=== PATIENT | male | born 1965 | race Caucasian/White ===

== ENCOUNTER 2017-11-22 16:30 | Inpatient (IN) | payer OTHER ==
[~2017-11-22] VITALS: Ht 182.9 cm; Wt 119.6 kg
[2017-11-22] MEDS ORDERED: IBUPROFEN400 MG PO (16:53)
[2017-11-22 17:28] LABS: HEMATOCRIT 45.5 % (42.0-54.0); HEMOGLOBIN 15.9 g/dL (13.5-17.5); MCH 31.7 pg (26.0-34.0); MCHC 34.9 g/dL (31.0-37.0); MCV 90.6 fL (80.0-100.0); MEAN PLATELET VOLUME 10.6 fL (7.4-10.4); PLATELET COUNT 175 10x3/uL (130-400); RBC 5.02 10x6/uL (4.20-6.10); RDW 13.7 % (11.5-14.5); WBC 20.4 10x3/uL (4.8-10.8)
[2017-11-22 17:53] LABS: ALBUMIN 3.4 g/dL (3.4-5.0); ALKALINE PHOSPHATASE 63 U/L (46-116); ALT (SGPT) 22 U/L (10-68); BILIRUBIN - TOTAL 1.14 mg/dL (0.2-1.3); CALC OSMOLALITY 266 mosm/kg (275-300); CALCIUM 8.8 mg/dL (8.5-10.1); CARBON DIOXIDE 24.8 mmol/L (21.0-32.0); CHLORIDE - SERUM 101 mmol/L (98-107); GLUCOSE 102 mg/dL (74-106); PROTEIN - SERUM 7.5 g/dL (6.4-8.2); SODIUM 134 mmol/L (136-145); UREA NITROGEN 11 mg/dL (7-18); eGFR NON AFRICAN AMERICAN 84 mL/min (90-120)
[2017-11-22 17:57] LABS: AMYLASE - SERUM 39 U/L (25-115); LIPASE 89 U/L (73-393); TROPONIN-I < 0.017 ng/mL (0.000-0.060)
[2017-11-22 18:22] LABS: APPEARANCE CLEAR (CLEAR); BILIRUBIN NEGATIVE (NEGATIVE); COLOR YELLOW (YELLOW); GLUCOSE NEGATIVE (NEGATIVE); KETONE MODERATE mg/dL (NEGATIVE); NITRITE NEGATIVE (NEGATIVE); PROTEIN TRACE mg/dL (NEGATIVE); SPECIFIC GRAVITY 1.015 (1.005-1.020); UROBILINOGEN NORMAL (NORMAL)
[2017-11-22 18:55] LABS: LYMPHOCYTES 13 % (15-50); MONOCYTES 7 % (2-11); NEUTROPHILS 80 % (40-80); PLATELET ESTIMATE NORMAL
[2017-11-23 04:00] VITALS: BP 114/72
[2017-11-23 04:31] LABS: BASOPHILS 0 % (0-2); EOSINOPHILS 0.3 % (0-7); HEMATOCRIT 42.4 % (42.0-54.0); IMMATURE GRANULOCYTES 0.2 % (0-5); LYMPHOCYTES 5.5 % (15-50); MCHC 35.4 g/dL (31.0-37.0); MCV 90.4 fL (80.0-100.0); MEAN PLATELET VOLUME 10.7 fL (7.4-10.4); MONOCYTES 10.9 % (2-11); NEUTROPHILS 83.1 % (40-80); PLATELET COUNT 158 10x3/uL (130-400); RBC 4.69 10x6/uL (4.20-6.10); RDW 13.8 % (11.5-14.5); WBC 20.1 10x3/uL (4.8-10.8)
[2017-11-23 04:40] LABS: ALBUMIN 2.8 g/dL (3.4-5.0); ALKALINE PHOSPHATASE 55 U/L (46-116); ALT (SGPT) 20 U/L (10-68); BILIRUBIN - TOTAL 0.78 mg/dL (0.2-1.3); CALC OSMOLALITY 268 mosm/kg (275-300); CALCIUM 8.4 mg/dL (8.5-10.1); CARBON DIOXIDE 24.1 mmol/L (21.0-32.0); CHLORIDE - SERUM 100 mmol/L (98-107); GLUCOSE 100 mg/dL (74-106); POTASSIUM - SERUM 3.8 mmol/L (3.5-5.1); PROTEIN - SERUM 6.8 g/dL (6.4-8.2); SODIUM 135 mmol/L (136-145); UREA NITROGEN 9 mg/dL (7-18); eGFR NON AFRICAN AMERICAN 84 mL/min (90-120)
[2017-11-23 08:21] VITALS: BP 127/85
[2017-11-23 09:35] VITALS: BMI 36.3
[2017-11-23 11:15] VITALS: Ht 182.9 cm; Wt 119.6 kg
[2017-11-23 11:23] VITALS: BP 127/78
[2017-11-23 15:39] VITALS: BP 122/82
[2017-11-23 23:42] VITALS: BP 149/93
[2017-11-24 06:34] VITALS: BP 123/75
[2017-11-24 06:52] LABS: CALC OSMOLALITY 271 mosm/kg (275-300); CALCIUM 8.4 mg/dL (8.5-10.1); CARBON DIOXIDE 24.9 mmol/L (21.0-32.0); CHLORIDE - SERUM 101 mmol/L (98-107); GLUCOSE 81 mg/dL (74-106); POTASSIUM - SERUM 3.8 mmol/L (3.5-5.1); SODIUM 137 mmol/L (136-145); UREA NITROGEN 10 mg/dL (7-18); eGFR NON AFRICAN AMERICAN 84 mL/min (90-120)
[2017-11-24 06:55] LABS: BASOPHILS 0.1 % (0-2); EOSINOPHILS 0.9 % (0-7); HEMATOCRIT 42.1 % (42.0-54.0); HEMOGLOBIN 14.5 g/dL (13.5-17.5); IMMATURE GRANULOCYTES 0.3 % (0-5); LYMPHOCYTES 7.3 % (15-50); MCH 31.4 pg (26.0-34.0); MCHC 34.4 g/dL (31.0-37.0); MCV 91.1 fL (80.0-100.0); MEAN PLATELET VOLUME 10.8 fL (7.4-10.4); MONOCYTES 10.7 % (2-11); NEUTROPHILS 80.7 % (40-80); PLATELET COUNT 172 10x3/uL (130-400); RBC 4.62 10x6/uL (4.20-6.10); RDW 13.9 % (11.5-14.5); WBC 15.8 10x3/uL (4.8-10.8)
[2017-11-24 09:04] VITALS: BP 131/76
[2017-11-24 11:26] VITALS: BP 126/71
[2017-11-24 15:47] VITALS: BP 130/72
[2017-11-24 22:05] VITALS: BP 147/86
[2017-11-25 05:41] LABS: BASOPHILS 0.2 % (0-2); EOSINOPHILS 1.8 % (0-7); HEMATOCRIT 41.5 % (42.0-54.0); HEMOGLOBIN 14.5 g/dL (13.5-17.5); IMMATURE GRANULOCYTES 0.4 % (0-5); LYMPHOCYTES 14.1 % (15-50); MCH 31.8 pg (26.0-34.0); MCHC 34.9 g/dL (31.0-37.0); MEAN PLATELET VOLUME 10.9 fL (7.4-10.4); NEUTROPHILS 74.5 % (40-80); PLATELET COUNT 194 10x3/uL (130-400); RBC 4.56 10x6/uL (4.20-6.10); RDW 13.4 % (11.5-14.5); WBC 12.2 10x3/uL (4.8-10.8)
[2017-11-25 06:03] LABS: CALC OSMOLALITY 269 mosm/kg (275-300); CALCIUM 8.8 mg/dL (8.5-10.1); CARBON DIOXIDE 22.4 mmol/L (21.0-32.0); CHLORIDE - SERUM 101 mmol/L (98-107); CREATININE - SERUM 0.9 mg/dL (0.6-1.3); GLUCOSE 78 mg/dL (74-106); POTASSIUM - SERUM 3.8 mmol/L (3.5-5.1); SODIUM 136 mmol/L (136-145); UREA NITROGEN 10 mg/dL (7-18); eGFR NON AFRICAN AMERICAN > 90 mL/min (90-120)
[2017-11-25 06:16] VITALS: BP 133/79
[2017-11-25 08:39] VITALS: BP 127/75
[2017-11-25 10:47] VITALS: BP 145/86
[2017-11-25 15:37] VITALS: BP 123/82
[2017-11-25 21:18] VITALS: BP 124/84
[2017-11-26 05:42] VITALS: BP 154/94
[2017-11-26 06:51] LABS: BASOPHILS 0.3 % (0-2); CALC OSMOLALITY 270 mosm/kg (275-300); CALCIUM 8.5 mg/dL (8.5-10.1); CARBON DIOXIDE 29.7 mmol/L (21.0-32.0); CHLORIDE - SERUM 101 mmol/L (98-107); EOSINOPHILS 2.4 % (0-7); GLUCOSE 100 mg/dL (74-106); HEMATOCRIT 43.1 % (42.0-54.0); HEMOGLOBIN 14.9 g/dL (13.5-17.5); IMMATURE GRANULOCYTES 0.5 % (0-5); LYMPHOCYTES 16.3 % (15-50); MCH 31.4 pg (26.0-34.0); MCHC 34.6 g/dL (31.0-37.0); MCV 90.7 fL (80.0-100.0); MEAN PLATELET VOLUME 10.5 fL (7.4-10.4); MONOCYTES 12.2 % (2-11); NEUTROPHILS 68.3 % (40-80); PLATELET COUNT 226 10x3/uL (130-400); POTASSIUM - SERUM 3.9 mmol/L (3.5-5.1); RBC 4.75 10x6/uL (4.20-6.10); RDW 13.5 % (11.5-14.5); SODIUM 136 mmol/L (136-145); UREA NITROGEN 10 mg/dL (7-18); WBC 11.9 10x3/uL (4.8-10.8); eGFR NON AFRICAN AMERICAN 84 mL/min (90-120)
[2017-11-26 07:04] LABS: APPEARANCE CLEAR (CLEAR); BILIRUBIN NEGATIVE (NEGATIVE); COLOR YELLOW (YELLOW); GLUCOSE NEGATIVE (NEGATIVE); KETONE LARGE mg/dL (NEGATIVE); NITRITE NEGATIVE (NEGATIVE); PROTEIN NEGATIVE (NEGATIVE); SPECIFIC GRAVITY 1.015 (1.005-1.020); UROBILINOGEN NORMAL (NORMAL)
[2017-11-26 08:19] VITALS: BP 139/91
[2017-11-26] MEDS ORDERED: LEVAQUIN750 MG PO (11:07)
[2017-11-26] MEDS ORDERED: FLAGYL500 MG PO (11:08)
== END 2017-11-26 13:45 | disposition home or self-care (01) | DRG 392 ==
LOC: D.ER 16:30 → D.M2 21:10 → D.SDCHOLD 11-23 09:07 → D.M2 11-26 13:45
PROVIDERS: Emergency Medicine; Family Medicine; Internal Medicine Nephrology
DX: K57.80 Diverticulitis of intestine, part unspecified, with perforation and abscess without bleeding (principal); F17.213 Nicotine dependence, cigarettes, with withdrawal; Z86.73 Personal history of transient ischemic attack (TIA), and cerebral infarction without residual deficits

== ENCOUNTER 2017-12-07 10:41 | Inpatient (IN) | payer OTHER ==
[~2017-12-07] VITALS: Ht 182.9 cm; Wt 117.9 kg
--- NOTE | ~2017-12-07 | MORECARE ---
CASE MANAGEMENT DISCHARGE SUMMARY PATIENT: EDGARD CARR UNIT: [id number] ADM DATE: 12/07/17 AGE: 52 : [birth year] SEX: M ROOM/BED: D.2202 AUTHOR: CHAVA,DOC PHYSICIAN: REFERRING PHYSICIAN: AGATA FITZPATRICK MD DATE OF SERVICE: 12/20/17 Discharge Plan Patient Name: EDGARD CARR Facility: [facility]:[place] : 1965 Planned Disposition: Home Anticipated Discharge Date: 12/12/17 Discharge Date: 12/18/2017 Expected LOS: 5 Initial Reviewer: [email or web address] Initial Review Date: 12/07/2017 Generated: 12/20/17 9:07 am DCP- Discharge Planning Updated by [email or web address]: Lory Donald on 12/07/17 2:[address] Patient Name: EDGARD CARR Admission Status: ER Accout number: [id number] Admission Date: 12-07-2017 : 1965 Admission Diagnosis: Attending: AGATA FITZPATRICK Current LOS: 1 Anticipated DC Date: 12-12-2017 Planned Disposition: Home Primary Insurance: [email or web address] PPO Discharge Planning Comments: CM met with patient and his to complete initial dc planning assessment. CM educated patient on the CM role and verbal consent given by patient to complete assessment. Patient lives at home independently with his and children. At discharge patient plans to return home and feels this is a safe discharge. Patient denied known discharge needs at this time. CM will continue to follow and will assist as needed with dc plans/needs. See below for more assessment information. Is the patient Alert and Oriented? Yes * How many steps to enter\exit or inside your home? None * PCP Don't have one. Was to see Dr. Fitzpatrick until he found a primary. * Pharmacy [facility] * Preadmission Environment Home with Family * ADLs Independent * Equipment None * List name and contact numbers for known caregivers / representatives who currently or will assist patient after discharge: Bandar Carr - - [phone] * Verbal permission to speak to the caregivers and representatives has been obtained from the patient. Yes * Community resources currently utilized None * Additional services required to return to the preadmission environment? No * Can the patient safely return to the preadmission environment? Yes * Has this patient been hospitalized within the prior 30 days at any hospital? Yes Warehouse Inventory Clerk: Lory Donald DCPIA - Discharge Planning Initial Assessment Updated by [email or web address]: Lory Donald on 12/07/17 3:35 pm * Is the patient Alert and Oriented? Yes * How many steps to enter\exit or inside your home? None * PCP Don't have one. Was to see Dr. Fitzpatrick until he found a primary. * Pharmacy [facility] * Preadmission Environment Home with Family * ADLs Independent * Equipment None * List name and contact numbers for known caregivers / representatives who currently or will assist patient after discharge: Bandar Carr - - [phone] * Verbal permission to speak to the caregivers and representatives has been obtained from the patient. Yes * Community resources currently utilized None * Additional services required to return to the preadmission environment? No * Can the patient safely return to the preadmission environment? Yes * Has this patient been hospitalized within the prior 30 days at any hospital? Yes Last DP export: 12/07/17 2:42 p Patient Name: EDGARD CARR Page [id number] at 0807 All edits/amendments must be made on the electronic document DICTATION DATE: 12/20/17806 SR. SOCIAL MEDIA & MOBILE MANAGER: NORMA 12/20/17806 RPT#: [id number] DC DATE:12/18/17 STATUS: DIS IN [facility] [address] [place] [address] END OF REPORT
--- NOTE | ~2017-12-07 | OP ---
PATIENT NAME: EDGARD MARROQUIN MEDICAL RECORD: [id number] :[birth year] LOCATION:[facility] [place] ADMISSION DATE:12/07/17 SURGEON: JACKY ADAMS MD DATE OF OPERATION: 12/10/2017 PREOPERATIVE DIAGNOSIS: Recurrent diverticulitis. POSTOPERATIVE DIAGNOSES: Recurrent diverticulitis with abscess. PROCEDURE: Hand-assisted laparoscopic surgery - sigmoid colectomy with takedown of the splenic flexure. SURGEON: Jacky Adams MD CLOTH WINDING SUPERVISOR: None. BLOOD LOSS: 100 cc. ANESTHESIA: General. COMPLICATIONS: None. The risks, possible complications and alternatives to procedure were explained to the patient. He elects to proceed. The discussion specifically included, but was not limited to, bleeding requiring emergency reoperation, infection, intestinal injury as well as an open procedure and a colostomy or ileostomy. OPERATIVE COURSE: The patient was conveyed to the operating room electively on 12/10/2017. General anesthesia was induced by the anesthesia staff. The patient was placed supine, but in adjustable stirrups, so that the lower extremities could be elevated. The abdomen was sterilely prepped and draped. A small skin alicia was accomplished in the left upper quadrant. A Veress needle was inserted through this skin alicia and into the peritoneal cavity. CO2 insufflation was begun. Once a sufficient pneumoperitoneum had been achieved, a 5-mm trocar was inserted through an incision in the umbilicus. Under direct internal vision utilizing a television camera, a 5-mm trocar was inserted through an incision in the epigastrium and another 5-mm trocar was inserted through an incision in the suprapubic area. During insertion of the Veress needle and all trocars, there appeared to have been no injury to the bowels, any intraperitoneal or retroperitoneal structures. I tilted the patient to the right. I incised along the right white line of Toldt utilizing the laparoscopic Harmonic scalpel. I took down the splenic flexure utilizing the laparoscopic Harmonic scalpel. I then created a transverse incision 2 fingerbreadths above the pubic symphysis. Sharp dissection was carried down through the skin and subcutaneous tissue as well as Adonis's fascia. The anterior fascia was incised transversely. I then stretched the rectus abdominis muscles laterally. Stay sutures were placed on the peritoneum on either side. I then incised the peritoneum. I placed an Jordan retractor in the peritoneum. I placed a GelPort on top of the Jordan retractor. I then inserted my lubricated left upper extremity into the abdomen. Another skin incision was accomplished in the left lower quadrant and a 5-mm trocar was inserted there. OPERATIVE REPORT [id number] EDGARD MARROQUIN Utilizing a hand-assisted approach, I continued some blunt dissection at the splenic flexure, fully mobilizing the splenic flexure of the colon. I incised along the entire length of the white line of Toldt on the left. I folded the left colon medially. I entered the inter-sigmoid fossa. There was no damage to ureter. No vascular injury either. I then took the top of the Gelport. I then created a window in the mesorectum at the point where the sigmoid colon splays out to become the rectum. I stapled across the top of the rectum with an Endo-SKY type stapler utilizing a blue load. I then began to takedown the mesentery of the sigmoid colon. I encountered acute diverticulitis with purulence. So there was a small abscess present. I continued to take down the mesentery of the sigmoid colon with the Harmonic scalpel. I chose the proximal extent of my resection to be the junction of the descending and sigmoid colons. I stapled across the colon here with a SKY-75 stapler. The remaining mesentery of the sigmoid colon was taken down with the Harmonic scalpel. The specimen was sent to pathology. I then dilated up through the anus with EEA sizers. I then rescrubbed and returned to the sterile field. I excised the staple line at the descending colon. I placed a 29-mm anvil through the colotomy and brought it out through the antimesenteric border of the colon. I then stapled off the end of the descending colon with the SKY-75 stapler. I then inserted the EEA stapling device up through the anus and brought it out through the upper portion of the rectum. It was connected to the anvil. There was no twisting of the bowel. I then tightened down on the EEA stapling device and then fired. We then loosened up on the EEA device and removed in its entirety. There were 2 complete donuts of large bowel present within the EEA stapling device. We then filled the pelvis with normal saline. Utilizing proctoscope, I inflated the rectum. I inflated the colon as well. There was no bubbling. Therefore, an airtight anastomosis. I reinforced the anterior portion of the anastomosis with multiple horizontal mattress 3-0 Vicryl sutures. I irrigated and aspirated. There was no bleeding. A 5-mm trocars were removed. The 5-mm trocar site at the umbilicus was closed with interrupted 4-0 Vicryl Rapide sutures. The other skin incisions at the trocar sites were closed with interrupted 3-0 Vicryl sutures in an intracuticular fashion. The peritoneum at the transverse incision in the suprapubic area was closed with a running #1 Vicryl. The rectus abdominis muscles were reapproximated with interrupted horizontal mattress #1 Vicryls. The anterior fascia was approximated with a running looped #1 PDS from the right and from the left. Adonis's fascia was approximated with interrupted 3-0 Vicryls. The subdermis was approximated with interrupted 3-0 Vicryls. The skin was approximated with a running intracuticular 3-0 Vicryl. Benzoin and Steri-Strips were applied. The patient was then extubated and conveyed to post-anesthesia care unit where he was in stable condition. TRANSINT:[id number] Voice Confirmation ID: [id number] DOCUMENT ID: [id number] OPERATIVE REPORT [id number] EDGARD MARROQUIN ROBERT MD at 170 CC: AGATA LAMA MD [id number] DICTATION DATE: 12/11/17 1632 LICENSED CLINICAL SOCIAL WORKER: 12/11/17 1722 ADM IN [facility] [address] [id number]
[~2017-12-07 10:41] MED LIST: FLAGYL500 MG PO; IBUPROFEN400 MG PO; LEVAQUIN750 MG PO
[2017-12-07 11:45] LABS: BASOPHILS 0.3 % (0-2); EOSINOPHILS 1.2 % (0-7); HEMATOCRIT 44.9 % (42.0-54.0); HEMOGLOBIN 15.8 g/dL (13.5-17.5); IMMATURE GRANULOCYTES 0.5 % (0-5); LYMPHOCYTES 14.8 % (15-50); MCH 31.9 pg (26.0-34.0); MCHC 35.2 g/dL (31.0-37.0); MCV 90.5 fL (80.0-100.0); MONOCYTES 6.9 % (2-11); NEUTROPHILS 76.3 % (40-80); RBC 4.96 10x6/uL (4.20-6.10); RDW 13.6 % (11.5-14.5)
[2017-12-07 11:50] LABS: PLATELET COUNT 298 10x3/uL (130-400)
[2017-12-07 12:04] LABS: ALBUMIN 3.5 g/dL (3.4-5.0); ALKALINE PHOSPHATASE 65 U/L (46-116); ALT (SGPT) 27 U/L (10-68); BILIRUBIN - TOTAL 0.39 mg/dL (0.2-1.3); CALC OSMOLALITY 277 mosm/kg (275-300); CALCIUM 8.8 mg/dL (8.5-10.1); CARBON DIOXIDE 25.5 mmol/L (21.0-32.0); CHLORIDE - SERUM 102 mmol/L (98-107); CREATININE - SERUM 0.9 mg/dL (0.6-1.3); POTASSIUM - SERUM 4.6 mmol/L (3.5-5.1); PROTEIN - SERUM 7.1 g/dL (6.4-8.2); SODIUM 137 mmol/L (136-145); UREA NITROGEN 14 mg/dL (7-18); eGFR NON AFRICAN AMERICAN > 90 mL/min (90-120)
[2017-12-07 12:08] LABS: APPEARANCE CLEAR (CLEAR); BILIRUBIN NEGATIVE (NEGATIVE); COLOR YELLOW (YELLOW); GLUCOSE NEGATIVE (NEGATIVE); KETONE NEGATIVE (NEGATIVE); NITRITE NEGATIVE (NEGATIVE); PROTEIN NEGATIVE (NEGATIVE); UROBILINOGEN NORMAL (NORMAL)
[2017-12-07 12:09] LABS: GLUCOSE 154 mg/dL (74-106)
[2017-12-07 12:25] VITALS: BP 124/77
[2017-12-07 18:49] VITALS: BP 146/80; BMI 35.3
[2017-12-07 20:06] VITALS: BP 129/65
[2017-12-08 05:49] VITALS: BP 118/71
[2017-12-08 08:20] VITALS: BP 124/75
[2017-12-08 09:34] LABS: BASOPHILS 0.2 % (0-2); EOSINOPHILS 1.9 % (0-7); HEMATOCRIT 43.3 % (42.0-54.0); IMMATURE GRANULOCYTES 0.4 % (0-5); LYMPHOCYTES 10.9 % (15-50); MCH 32.1 pg (26.0-34.0); MCHC 34.6 g/dL (31.0-37.0); MEAN PLATELET VOLUME 9.9 fL (7.4-10.4); MONOCYTES 7.5 % (2-11); NEUTROPHILS 79.1 % (40-80); PLATELET COUNT 244 10x3/uL (130-400); RBC 4.68 10x6/uL (4.20-6.10); RDW 13.6 % (11.5-14.5); WBC 13.9 10x3/uL (4.8-10.8)
[2017-12-08 09:37] LABS: MCV 92.5 fL (80.0-100.0)
[2017-12-08 09:38] LABS: CALC OSMOLALITY 273 mosm/kg (275-300); CALCIUM 8.2 mg/dL (8.5-10.1); CARBON DIOXIDE 25.8 mmol/L (21.0-32.0); CHLORIDE - SERUM 103 mmol/L (98-107); CREATININE - SERUM 1.1 mg/dL (0.6-1.3); GLUCOSE 176 mg/dL (74-106); POTASSIUM - SERUM 4.4 mmol/L (3.5-5.1); SODIUM 136 mmol/L (136-145); eGFR NON AFRICAN AMERICAN 75 mL/min (90-120)
[2017-12-08 09:55] LABS: UREA NITROGEN 8 mg/dL (7-18)
[2017-12-08 12:38] VITALS: BP 106/52
[2017-12-08 13:10] VITALS: BMI 35.2
[2017-12-08 14:01] VITALS: Ht 182.9 cm; Wt 117.9 kg
[2017-12-08 17:06] VITALS: BP 108/76
[2017-12-08 20:29] VITALS: BP 130/87
[2017-12-09 05:12] VITALS: BP 148/78
[2017-12-09 05:18] VITALS: BP 115/73
[2017-12-09 06:03] LABS: BASOPHILS 0.3 % (0-2); EOSINOPHILS 2.1 % (0-7); HEMOGLOBIN 14.1 g/dL (13.5-17.5); IMMATURE GRANULOCYTES 0.5 % (0-5); LYMPHOCYTES 13.3 % (15-50); MCH 31.2 pg (26.0-34.0); MCHC 33.6 g/dL (31.0-37.0); MCV 92.9 fL (80.0-100.0); MEAN PLATELET VOLUME 10.1 fL (7.4-10.4); MONOCYTES 9.7 % (2-11); NEUTROPHILS 74.1 % (40-80); PLATELET COUNT 254 10x3/uL (130-400); RBC 4.52 10x6/uL (4.20-6.10); RDW 13.5 % (11.5-14.5)
[2017-12-09 06:25] LABS: CALC OSMOLALITY 276 mosm/kg (275-300); CALCIUM 8.7 mg/dL (8.5-10.1); CARBON DIOXIDE 30.5 mmol/L (21.0-32.0); CHLORIDE - SERUM 103 mmol/L (98-107); CREATININE - SERUM 1.1 mg/dL (0.6-1.3); GLUCOSE 101 mg/dL (74-106); POTASSIUM - SERUM 3.9 mmol/L (3.5-5.1); SODIUM 140 mmol/L (136-145); UREA NITROGEN 6 mg/dL (7-18); eGFR NON AFRICAN AMERICAN 75 mL/min (90-120)
[2017-12-09 08:45] VITALS: BP 146/96
[2017-12-09 12:45] VITALS: BP 133/85
[2017-12-09 20:00] VITALS: BP 107/77
[2017-12-10] VITALS (10 sets, daily range): BP systolic 114–138; BP diastolic 56–86
[2017-12-10 06:04] LABS: BASOPHILS 0.2 % (0-2); EOSINOPHILS 1.8 % (0-7); HEMATOCRIT 39.1 % (42.0-54.0); HEMOGLOBIN 13.3 g/dL (13.5-17.5); IMMATURE GRANULOCYTES 0.4 % (0-5); LYMPHOCYTES 13.2 % (15-50); MCH 31.3 pg (26.0-34.0); MEAN PLATELET VOLUME 10.1 fL (7.4-10.4); MONOCYTES 9.7 % (2-11); NEUTROPHILS 74.7 % (40-80); PLATELET COUNT 229 10x3/uL (130-400); RBC 4.25 10x6/uL (4.20-6.10); RDW 13.4 % (11.5-14.5); WBC 12.5 10x3/uL (4.8-10.8)
[2017-12-10 06:13] LABS: CALC OSMOLALITY 275 mosm/kg (275-300); CALCIUM 8.6 mg/dL (8.5-10.1); CARBON DIOXIDE 27.9 mmol/L (21.0-32.0); CHLORIDE - SERUM 104 mmol/L (98-107); GLUCOSE 98 mg/dL (74-106); POTASSIUM - SERUM 3.7 mmol/L (3.5-5.1); SODIUM 140 mmol/L (136-145); UREA NITROGEN 5 mg/dL (7-18); eGFR NON AFRICAN AMERICAN 84 mL/min (90-120)
[2017-12-11] VITALS: BP 117/82
[2017-12-11 04:00] VITALS: BP 122/77
[2017-12-11 05:14] LABS: BASOPHILS 0 % (0-2); EOSINOPHILS 0 % (0-7); HEMATOCRIT 37.6 % (42.0-54.0); HEMOGLOBIN 12.9 g/dL (13.5-17.5); IMMATURE GRANULOCYTES 0.3 % (0-5); LYMPHOCYTES 4.3 % (15-50); MCH 31.3 pg (26.0-34.0); MCHC 34.3 g/dL (31.0-37.0); MCV 91.3 fL (80.0-100.0); MEAN PLATELET VOLUME 10.4 fL (7.4-10.4); MONOCYTES 6.1 % (2-11); NEUTROPHILS 89.3 % (40-80); PLATELET COUNT 272 10x3/uL (130-400); RBC 4.12 10x6/uL (4.20-6.10); RDW 13.3 % (11.5-14.5)
[2017-12-11 05:15] LABS: WBC 17.6 10x3/uL (4.8-10.8)
[2017-12-11 05:29] LABS: ALBUMIN 2.6 g/dL (3.4-5.0); ALKALINE PHOSPHATASE 44 U/L (46-116); ALT (SGPT) 13 U/L (10-68); CALC OSMOLALITY 274 mosm/kg (275-300); CALCIUM 8.6 mg/dL (8.5-10.1); CARBON DIOXIDE 23.9 mmol/L (21.0-32.0); CHLORIDE - SERUM 103 mmol/L (98-107); GLUCOSE 117 mg/dL (74-106); MAGNESIUM - SERUM 1.8 mg/dL (1.8-2.4); PHOSPHOROUS 4.4 mg/dL (2.5-4.9); POTASSIUM - SERUM 4.3 mmol/L (3.5-5.1); PROTEIN - SERUM 6.3 g/dL (6.4-8.2); SODIUM 138 mmol/L (136-145); TROPONIN-I < 0.017 ng/mL (0.000-0.060); UREA NITROGEN 7 mg/dL (7-18); eGFR NON AFRICAN AMERICAN 84 mL/min (90-120)
[2017-12-11 12:33] VITALS: BP 95/56
[2017-12-11 17:34] VITALS: BP 109/52
[2017-12-11 19:50] VITALS: BP 127/75
[2017-12-12] VITALS: BP 122/67
[2017-12-12 04:00] VITALS: BP 118/62; BP 128/70
[2017-12-12 06:36] LABS: BASOPHILS 0.1 % (0-2); EOSINOPHILS 0.7 % (0-7); HEMATOCRIT 34.5 % (42.0-54.0); HEMOGLOBIN 11.6 g/dL (13.5-17.5); IMMATURE GRANULOCYTES 0.5 % (0-5); LYMPHOCYTES 12.6 % (15-50); MCH 31.1 pg (26.0-34.0); MCHC 33.6 g/dL (31.0-37.0); MCV 92.5 fL (80.0-100.0); MEAN PLATELET VOLUME 10.4 fL (7.4-10.4); MONOCYTES 10.7 % (2-11); NEUTROPHILS 75.4 % (40-80); PLATELET COUNT 226 10x3/uL (130-400); RBC 3.73 10x6/uL (4.20-6.10); RDW 13.7 % (11.5-14.5); WBC 15.1 10x3/uL (4.8-10.8)
[2017-12-12 07:04] LABS: CALC OSMOLALITY 275 mosm/kg (275-300); CALCIUM 8.1 mg/dL (8.5-10.1); CARBON DIOXIDE 25.3 mmol/L (21.0-32.0); CHLORIDE - SERUM 103 mmol/L (98-107); CREATININE - SERUM 0.9 mg/dL (0.6-1.3); GLUCOSE 81 mg/dL (74-106); POTASSIUM - SERUM 3.7 mmol/L (3.5-5.1); SODIUM 139 mmol/L (136-145); eGFR NON AFRICAN AMERICAN > 90 mL/min (90-120)
[2017-12-12 07:06] LABS: UREA NITROGEN 11 mg/dL (7-18)
[2017-12-12 08:27] VITALS: BP 104/48
[2017-12-12 12:18] VITALS: BP 108/68
[2017-12-12 16:49] VITALS: BP 123/70
[2017-12-12 20:00] VITALS: BP 118/73
[2017-12-13] VITALS: BP 138/83
[2017-12-13 04:00] VITALS: BP 129/74
[2017-12-13 06:01] LABS: CALC OSMOLALITY 275 mosm/kg (275-300); CALCIUM 8.7 mg/dL (8.5-10.1); CARBON DIOXIDE 27.4 mmol/L (21.0-32.0); CHLORIDE - SERUM 102 mmol/L (98-107); CREATININE - SERUM 0.9 mg/dL (0.6-1.3); GLUCOSE 86 mg/dL (74-106); POTASSIUM - SERUM 3.5 mmol/L (3.5-5.1); SODIUM 139 mmol/L (136-145); UREA NITROGEN 9 mg/dL (7-18); eGFR NON AFRICAN AMERICAN > 90 mL/min (90-120)
[2017-12-13 07:42] LABS: BASOPHILS 0.2 % (0-2); EOSINOPHILS 2.2 % (0-7); HEMATOCRIT 38.8 % (42.0-54.0); HEMOGLOBIN 12.9 g/dL (13.5-17.5); IMMATURE GRANULOCYTES 0.5 % (0-5); LYMPHOCYTES 13.9 % (15-50); MCHC 33.2 g/dL (31.0-37.0); MCV 93.3 fL (80.0-100.0); MEAN PLATELET VOLUME 10.6 fL (7.4-10.4); MONOCYTES 12.9 % (2-11); NEUTROPHILS 70.3 % (40-80); PLATELET COUNT 240 10x3/uL (130-400); RBC 4.16 10x6/uL (4.20-6.10); RDW 13.6 % (11.5-14.5); WBC 12.4 10x3/uL (4.8-10.8)
[2017-12-13 11:41] VITALS: BP 156/92
[2017-12-13 16:01] VITALS: BP 127/86
[2017-12-13 20:18] VITALS: BP 129/85
[2017-12-14 04:11] VITALS: BP 148/74
[2017-12-14 05:49] LABS: BASOPHILS 0.1 % (0-2); EOSINOPHILS 2.5 % (0-7); HEMATOCRIT 39.4 % (42.0-54.0); HEMOGLOBIN 13.1 g/dL (13.5-17.5); IMMATURE GRANULOCYTES 0.3 % (0-5); LYMPHOCYTES 9.3 % (15-50); MCH 30.5 pg (26.0-34.0); MCHC 33.2 g/dL (31.0-37.0); MCV 91.8 fL (80.0-100.0); MEAN PLATELET VOLUME 10.2 fL (7.4-10.4); MONOCYTES 13.2 % (2-11); NEUTROPHILS 74.6 % (40-80); PLATELET COUNT 246 10x3/uL (130-400); RBC 4.29 10x6/uL (4.20-6.10)
[2017-12-14 06:11] LABS: CALC OSMOLALITY 272 mosm/kg (275-300); CALCIUM 8.3 mg/dL (8.5-10.1); CARBON DIOXIDE 29.8 mmol/L (21.0-32.0); CHLORIDE - SERUM 99 mmol/L (98-107); CREATININE - SERUM 0.9 mg/dL (0.6-1.3); GLUCOSE 109 mg/dL (74-106); POTASSIUM - SERUM 3.6 mmol/L (3.5-5.1); SODIUM 137 mmol/L (136-145); UREA NITROGEN 8 mg/dL (7-18); eGFR NON AFRICAN AMERICAN > 90 mL/min (90-120)
[2017-12-14 08:45] VITALS: BP 143/91
[2017-12-14 12:45] VITALS: BP 115/76
[2017-12-14 16:53] VITALS: BP 135/84
[2017-12-14 20:16] VITALS: BP 146/93
[2017-12-15 03:31] VITALS: BP 141/93
[2017-12-15 04:25] LABS: BASOPHILS 0.1 % (0-2); EOSINOPHILS 2.5 % (0-7); HEMATOCRIT 39.3 % (42.0-54.0); HEMOGLOBIN 13.4 g/dL (13.5-17.5); IMMATURE GRANULOCYTES 0.4 % (0-5); LYMPHOCYTES 12.7 % (15-50); MCH 31.2 pg (26.0-34.0); MCHC 34.1 g/dL (31.0-37.0); MCV 91.4 fL (80.0-100.0); MEAN PLATELET VOLUME 10.2 fL (7.4-10.4); MONOCYTES 11.6 % (2-11); NEUTROPHILS 72.7 % (40-80); PLATELET COUNT 275 10x3/uL (130-400); RDW 13.1 % (11.5-14.5); WBC 10.9 10x3/uL (4.8-10.8)
[2017-12-15 04:38] LABS: CALC OSMOLALITY 274 mosm/kg (275-300); CALCIUM 8.9 mg/dL (8.5-10.1); CARBON DIOXIDE 30.6 mmol/L (21.0-32.0); CHLORIDE - SERUM 98 mmol/L (98-107); CREATININE - SERUM 0.9 mg/dL (0.6-1.3); GLUCOSE 108 mg/dL (74-106); POTASSIUM - SERUM 3.5 mmol/L (3.5-5.1); SODIUM 138 mmol/L (136-145); UREA NITROGEN 7 mg/dL (7-18); eGFR NON AFRICAN AMERICAN > 90 mL/min (90-120)
[2017-12-15 08:42] VITALS: BP 140/80
[2017-12-15 13:03] VITALS: BP 134/59
[2017-12-15 15:45] VITALS: BP 148/90
[2017-12-15 21:47] VITALS: BP 146/90
[2017-12-16 00:58] VITALS: BP 174/96
[2017-12-16 05:11] VITALS: BP 160/90
[2017-12-16 06:20] LABS: BASOPHILS 0.2 % (0-2); EOSINOPHILS 2.2 % (0-7); HEMATOCRIT 37.5 % (42.0-54.0); HEMOGLOBIN 12.9 g/dL (13.5-17.5); IMMATURE GRANULOCYTES 0.5 % (0-5); LYMPHOCYTES 13.5 % (15-50); MCH 31.3 pg (26.0-34.0); MCHC 34.4 g/dL (31.0-37.0); MEAN PLATELET VOLUME 10.2 fL (7.4-10.4); MONOCYTES 13.5 % (2-11); NEUTROPHILS 70.1 % (40-80); PLATELET COUNT 269 10x3/uL (130-400); RBC 4.12 10x6/uL (4.20-6.10); RDW 13.1 % (11.5-14.5); WBC 10.6 10x3/uL (4.8-10.8)
[2017-12-16 06:53] LABS: CALC OSMOLALITY 270 mosm/kg (275-300); CALCIUM 8.4 mg/dL (8.5-10.1); CARBON DIOXIDE 30.1 mmol/L (21.0-32.0); CHLORIDE - SERUM 100 mmol/L (98-107); CREATININE - SERUM 0.9 mg/dL (0.6-1.3); GLUCOSE 109 mg/dL (74-106); POTASSIUM - SERUM 3.4 mmol/L (3.5-5.1); SODIUM 136 mmol/L (136-145); UREA NITROGEN 8 mg/dL (7-18); eGFR NON AFRICAN AMERICAN > 90 mL/min (90-120)
[2017-12-16 09:10] VITALS: BP 149/94
[2017-12-16 12:45] VITALS: BP 140/94
[2017-12-16 16:45] VITALS: BP 133/88
[2017-12-16 21:17] VITALS: BP 150/83
[2017-12-17 04:50] LABS: BASOPHILS 0.3 % (0-2); EOSINOPHILS 3.1 % (0-7); HEMATOCRIT 36.9 % (42.0-54.0); HEMOGLOBIN 12.7 g/dL (13.5-17.5); IMMATURE GRANULOCYTES 0.5 % (0-5); LYMPHOCYTES 15.1 % (15-50); MCH 31.1 pg (26.0-34.0); MCHC 34.4 g/dL (31.0-37.0); MCV 90.4 fL (80.0-100.0); MEAN PLATELET VOLUME 9.9 fL (7.4-10.4); MONOCYTES 11.8 % (2-11); NEUTROPHILS 69.2 % (40-80); PLATELET COUNT 251 10x3/uL (130-400); RBC 4.08 10x6/uL (4.20-6.10); RDW 13.2 % (11.5-14.5); WBC 10.2 10x3/uL (4.8-10.8)
[2017-12-17 04:58] LABS: CALC OSMOLALITY 271 mosm/kg (275-300); CALCIUM 8.3 mg/dL (8.5-10.1); CARBON DIOXIDE 27.2 mmol/L (21.0-32.0); CHLORIDE - SERUM 102 mmol/L (98-107); CREATININE - SERUM 0.7 mg/dL (0.6-1.3); GLUCOSE 107 mg/dL (74-106); POTASSIUM - SERUM 3.5 mmol/L (3.5-5.1); SODIUM 137 mmol/L (136-145); UREA NITROGEN 7 mg/dL (7-18); eGFR NON AFRICAN AMERICAN > 90 mL/min (90-120)
[2017-12-17 05:01] VITALS: BP 142/86
[2017-12-17 08:43] VITALS: BP 137/85
[2017-12-17 12:30] VITALS: BP 128/91
[2017-12-17 16:52] VITALS: BP 125/82
[2017-12-17 20:00] VITALS: BP 128/80
[2017-12-18] VITALS: BP 147/96
[2017-12-18 04:00] VITALS: BP 152/95
[2017-12-18 06:30] LABS: BASOPHILS 0.3 % (0-2); HEMATOCRIT 39.6 % (42.0-54.0); HEMOGLOBIN 13.6 g/dL (13.5-17.5); IMMATURE GRANULOCYTES 0.6 % (0-5); LYMPHOCYTES 15.2 % (15-50); MCH 30.9 pg (26.0-34.0); MCHC 34.3 g/dL (31.0-37.0); MEAN PLATELET VOLUME 9.7 fL (7.4-10.4); MONOCYTES 11.8 % (2-11); NEUTROPHILS 69.1 % (40-80); PLATELET COUNT 248 10x3/uL (130-400); RDW 13.2 % (11.5-14.5); WBC 10.8 10x3/uL (4.8-10.8)
[2017-12-18 06:43] LABS: ALBUMIN 2.8 g/dL (3.4-5.0); ALKALINE PHOSPHATASE 42 U/L (46-116); ALT (SGPT) 35 U/L (10-68); BILIRUBIN - TOTAL 0.38 mg/dL (0.2-1.3); CALC OSMOLALITY 270 mosm/kg (275-300); CALCIUM 8.7 mg/dL (8.5-10.1); CHLORIDE - SERUM 101 mmol/L (98-107); GLUCOSE 114 mg/dL (74-106); POTASSIUM - SERUM 4.1 mmol/L (3.5-5.1); PROTEIN - SERUM 6.7 g/dL (6.4-8.2); SODIUM 136 mmol/L (136-145); UREA NITROGEN 8 mg/dL (7-18)
[2017-12-18 06:44] LABS: CREATININE - SERUM 0.9 mg/dL (0.6-1.3); eGFR NON AFRICAN AMERICAN > 90 mL/min (90-120)
[2017-12-18 09:37] VITALS: BP 126/84
[2017-12-18] MEDS ORDERED: DILAUDID2 MG PO (10:46)
== END 2017-12-18 13:53 | disposition home or self-care (01) | DRG 330 ==
LOC: D.ER 10:41 → D.MS 14:19 → D.EDHOLD 14:19 → D.MS 15:09
PROVIDERS: Emergency Medicine; Internal Medicine Nephrology; Surgery
PROC: 0DNL0ZZ Release Transverse Colon, Open Approach (ICD-10-PCS; 2017-12-10)
PROC: 0DTN0ZZ Resection of Sigmoid Colon, Open Approach (ICD-10-PCS; principal; 2017-12-10 11:50)
PROC: 0D9670Z Drainage of Stomach with Drainage Device, Via Natural or Artificial Opening (ICD-10-PCS; 2017-12-14)
DX: K57.20 Diverticulitis of large intestine with perforation and abscess without bleeding (principal); F17.203 Nicotine dependence unspecified, with withdrawal; K56.7 Ileus, unspecified; K56.609 Unspecified intestinal obstruction, unspecified as to partial versus complete obstruction; E86.0 Dehydration

== ENCOUNTER 2017-12-22 02:58 | Emergency (ER) | payer OTHER ==
[~2017-12-22] VITALS: Ht 182.9 cm; Wt 113.4 kg
[~2017-12-22 02:58] MED LIST changes: +DILAUDID2 MG PO
[2017-12-22 03:04] VITALS: Ht 182.9 cm; Wt 113.4 kg
[2017-12-22] MEDS ORDERED: LIDODERM 5 %1 PATCH TRANSDERM (03:04)
[2017-12-22] MEDS ORDERED: CYCLOBENZAPRINE10 MG PO (03:26)
[2017-12-22] MEDS ORDERED: ZANTAC300 MG PO (03:26)
[2017-12-22] MEDS ORDERED: ACETAMINOPHEN500 M1 PO (03:26)
[2017-12-22] MEDS ORDERED: IBUPROFEN800 MG PO (03:26)
[2017-12-22 03:59] VITALS: BP 135/85
== END 2017-12-22 04:01 | disposition home or self-care (01) ==
LOC: D.ER 02:58
DX: M54.5 Low back pain (principal); Z86.73 Personal history of transient ischemic attack (TIA), and cerebral infarction without residual deficits

== ENCOUNTER → 2018-01-07 07:35 | Outpatient (CLI) | payer OTHER ==
[2017-12-22 03:04] VITALS: BMI 35.2
[~2018-01-07 07:35] MED LIST changes: +ACETAMINOPHEN500 M1 PO; +CYCLOBENZAPRINE10 MG PO; +IBUPROFEN800 MG PO; +LIDODERM 5 %1 PATCH TRANSDERM; +ZANTAC300 MG PO
== END | disposition home or self-care (01) ==
LOC: D.MRI 07:35
DX: M54.16 Radiculopathy, lumbar region (principal)

== ENCOUNTER 2018-10-24 08:26 | Emergency (ER) | payer OTHER ==
[~2018-10-24] VITALS: Ht 182.9 cm; Wt 90.9 kg
[2018-10-24 08:31] VITALS: Ht 182.9 cm; Wt 90.9 kg
[2018-10-24 10:50] VITALS: BP 148/63
== END 2018-10-24 10:50 | disposition home or self-care (01) ==
LOC: D.ER 08:26
DX: M54.5 Low back pain (principal)